=== PATIENT | female | born 1990 | race Caucasian/White ===

== ENCOUNTER 2016-11-08 22:08 | Emergency (ER) | payer OTHER ==
[2016-11-08] MEDS ORDERED: Ondansetron 2 mg/mL 2 mL Inj IVPUSH PRN (22:20)
[2016-11-08] MEDS ORDERED: CeFAZolin Inj 2 GM in IV Premix 1 EACH IV ONE (22:20)
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
[2016-11-08 22:27] LABS: BASOPHILS % (AUTO) 0.4 % (0-3); EOSINOPHILS % (AUTO) 0.3 % (0-5); MONOCYTES % (AUTO) 4.2 % (4-12); Mean Corpuscular Hemoglobin 29.2 pg (27.0-35.0); Mean Corpuscular Volume 81.7 fL (81-100); NEUTROPHILS % (AUTO) 65.5 % (40-74); Platelet Count 270 bil/L (150-400)
[2016-11-08] MEDS: HYDROmorphone 0.5 mg/0.5 mL iSecure Syringe IVPUSH PRN ×3 (22:30→23:50)
[2016-11-08 22:51] LABS: INR 0.94 ratio
[2016-11-08] MEDS ORDERED: Lidocaine 2% 6mL Topical Jelly TOPICAL ONE (23:35)
[2016-11-09] MEDS ORDERED: HYDROmorphone 1 mg/mL Inj IVPUSH ONE
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
== END 2016-11-09 01:01 | disposition short-term general hospital (02) ==
LOC: SED 22:08
DX: S89.212A Salter-Harris Type I physeal fracture of upper end of left fibula, initial encounter for closed fracture (principal); S82.142A Displaced bicondylar fracture of left tibia, initial encounter for closed fracture; F10.120 Alcohol abuse with intoxication, uncomplicated; V48.5XXA Car driver injured in noncollision transport accident in traffic accident, initial encounter; Y93.89 Activity, other specified; Y99.8 Other external cause status; Y92.410 Unspecified street and highway as the place of occurrence of the external cause
CPT/HCPCS: 29505; 36415; 51702; 70450; 71010; 72125; 73590; 73700; 74177; 80053; 84703; 85014; 85018; 85025; 85610; 85730; 86850; 96365; 96375; 96376; 99285; G0390; G0480; J0690; J1170; J2250; J2405; Q9967